=== PATIENT | male | born 1965 | race Two or more races ===

== ENCOUNTER 2024-05-15 06:40 | Day surgery (SDC) | payer BC, MEDICAID, SELFPAY ==
[2024-05-15] VITALS (9 sets, daily range): BP systolic 105–134; BP diastolic 51–98; PULSE 65–82; RESP 16–20; TEMP 36.2–36.5; O2SAT 94–98; BMI 31.0
[2024-05-15] MEDS: DiphenhydrAMINE INJ 50 MG/ML VIAL 25 MG IV (07:37)
[2024-05-15] MEDS: SODIUM CHLORIDE 0.9% 500 ML 500 ML 20 ML IV (07:37)
[2024-05-15] MEDS: MIDAZOLAM INJ 1 MG/ML VIAL 2 ML (ASD USE ONLY) 2 MG IV (07:37)
[2024-05-15] MEDS: fentaNYL CIT INJ 50 mCg/ML AMP 2ML (ASD USE ONLY) IV (07:37)
== END 2024-05-15 08:27 | disposition home or self-care (01) ==
PROVIDERS: PCP Physician Assistant; Referring Provider Surgery; Visit Provider Surgery
PROC: 0DBE8ZX Excision of Large Intestine, Via Natural or Artificial Opening Endoscopic, Diagnostic (ICD-10-PCS; CPT 45380; principal; 2024-05-15 07:30)
DX: Z12.11 Encounter for screening for malignant neoplasm of colon (principal); Z85.038 Personal history of other malignant neoplasm of large intestine; Z86.0101 Personal history of adenomatous and serrated colon polyps; D12.3 Benign neoplasm of transverse colon; Z98.0 Intestinal bypass and anastomosis status; K64.0 First degree hemorrhoids; K57.30 Diverticulosis of large intestine without perforation or abscess without bleeding
CPT/HCPCS: 45380; A4649; J1200; J2250; J3010; J7040